=== PATIENT | male | born 1990 | race Caucasian/White ===

== ENCOUNTER 2018-03-12 14:17 | Inpatient (IN) | payer BC ==
[2018-03-12 14:38] VITALS: BMI 32.0
--- NOTE | 2018-03-12 16:03 | HP ---
COWS - Scale Resting Pulse: 0= [place] 80 or Below Sweatin=Flushed/Facial Moisture Restless Observation: 3= Extraneous Movement Pupil Size: 2= Moderately Dilated Bone or Joint Aches: 2= Severe Diffuse Aches Runny Nose/ Eye Tearin= Runny Nose/Eyes GI Upset > 30mins: 3= Vomiting/Diarrhea Tremor Observation: 2= Slight Tremor Visible Yawning Observation: 2= >3x During Session Anxiety or Irritability: 2=Irritable/Anxious Goose Flesh Skin: 0=Smooth Skin COWS Score: 20 Admission ROS S - HPI Chief Complaint: i need help to stop using heroin and marijuana Allergies/Adverse Reactions: Allergies Allergy/AdvReac Type Severity Reaction Status Date / Time No Known Allergies Allergy Verified 03/12/18 15:46 History of Present Illness: this 27 years old male with heroin and marijuana dependence,seeking detox, withdrawal symptom,never been in detox before nicotine dependence longest period of sobriety 2 and half years - Ebola screening Have you traveled outside of the country in the last 21 days: No Have you had contact with anyone from an Ebola affected area: No Have you been sick,other than usual withdrawal symptoms: No Do you have a fever: No - Review of Systems Constitutional: Chills, Diaphoresis, Loss of Appetite, Malaise, Night Sweats, Changes in sleep, Weakness EENT: reports: Tearing, Nose Congestion Respiratory: reports: No Symptoms reported Cardiac: reports: No Symptoms Reported GI: reports: Diarrhea, Nausea, Vomiting, Abdominal cramping : reports: No Symptoms Reported Musculoskeletal: reports: Back Pain, Joint Pain, Muscle Pain, Joint Stiffness Integumentary: reports: Dryness Neuro: reports: Headache, Tremors Endocrine: reports: No Symptoms Reported Hematology: reports: No Symptoms Reported Psychiatric: reports: No Sypmtoms Reported, Judgement Intact, Mood/Affect Appropiate, Orientated x3 Patient History - Patient Medical History Hx Anemia: No Hx Asthma: No Hx Chronic Obstructive Pulmonary Disease (COPD): No Hx Cancer: No Hx Cardiac Disorders: No Hx Congestive Heart Failure: No Hx Hypertension: No Hx Hypercholesterolemia: No Hx Pacemaker: No HX Cerebrovascular Accident: No Hx Seizures: No Hx Dementia: No Hx Diabetes: No Hx Gastrointestinal Disorders: No Hx Liver Disease: No Hx Genitourinary Disorders: No Hx Sexually Transmitted Disorders: No Hx Renal Disease (ESRD): No Hx Thyroid Disease: No Hx Human Immunodeficiency Virus (HIV): No (last 2014 negative) Hx Hepatitis C: No Hx Depression: No Hx Suicide Attempt: No Hx Bipolar Disorder: No Hx Schizophrenia: No Other Medical History: no suicidal,no homicidal - Patient Surgical History Past Surgical History: Yes Hx Orthopedic Surgery: Yes (R knee meniscus repair. 2007) Anesthesia Reaction: No - PPD History Previous Implant?: No Implanted On Prior R Admission?: No PPD to be Administered?: Yes - Smoking Cessation Smoking history: Current every day smoker Have you smoked in the past 12 months: Yes Aproximately how many cigarettes per day: 10 Hx Chewing Tobacco Use: No Initiated information on smoking cessation: Yes 'Breaking Loose' booklet given: 03/12/18 - Substance & Tx. History Hx Alcohol Use: No Hx Substance Use: Yes Substance Use Type: Heroin Hx Substance Use Treatment: No - Substances Abused Heroin Route: Inhalation Frequency: Daily Amount used: 1/2 gram Age of first use: 25 Date of Last Use: 03/11/18 Marijuana/Hashish Route: Smoking Frequency: Daily Amount used: 1-3 joints Age of first use: 20 Date of Last Use: 03/10/18 Family Disease History - Family Disease History Family History: Denies Admission Physical Exam S - Vital Signs Vital Signs: Vital Signs - 24 hr 03/12/18 14:34 Temperature 98.3 F Pulse Rate 59 L Respiratory 18 Rate Blood Pressure 132/72 - Physical General Appearance: Yes: Moderate Distress, Tremorous, Irritable, Sweating, Anxious HEENTM: Yes: Normal ENT Inspection, JUANITA, Pharynx Normal Respiratory: Yes: Lungs Clear, Normal Breath Sounds, No Respiratory Distress Neck: Yes: Within Normal Limits, Supple, Trachea in good position Breast: Yes: Within Normal Limits Cardiology: Yes: Within Normal Limits, Regular Rhythm, Regular Rate, S1, S2 Abdominal: Yes: Within Normal Limits, Normal Bowel Sounds, Non Tender, Flat, Soft Genitourinary: Yes: Within Normal Limits Back: Yes: Muscle Spasm Musculoskeletal: Yes: full range of Motion, Back pain, Muscle Pain Extremities: Yes: Within Normal Limits, Normal Range of Motion, Tremors 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 - Detox or Rehab [facility] Level of Care: Medically Managed Detox Regimen/Protocol: Methadone [facility] Breath Alcohol Content Breath Alcohol Content: 0 Urine Drug Screen - Results Drug Screen Negative: No Urine Drug Screen Results: THC-Marijuana, OPI-Opiates
[2018-03-12] MEDS ORDERED: guaiFENesin/D-METHORPHAN HB 10 ML UNIT-DOSE CUPS PO PRN (16:11)
[2018-03-12] MEDS ORDERED: MENTHOL/PHENOL 1 EACH UD MM PRN (16:11)
[2018-03-12] MEDS ORDERED: hydrOXYzine PAMOATE 50 MG CAPSULE (FP) PO PRN (16:11)
[2018-03-12] MEDS ORDERED: NICOTINE POLACRILEX 2 MG GUM BC PRN (16:11)
[2018-03-12] MEDS ORDERED: IBUPROFEN 400 MG TABLET (FP) PO PRN (16:11)
[2018-03-12] MEDS ORDERED: MAGNESIUM CITRATE 300 ML BOTTLE PO PRN (16:11)
[2018-03-12] MEDS ORDERED: LOPERAMIDE HCL 2 MG CAPSULE PO PRN (16:11)
[2018-03-12] MEDS ORDERED: P-EPHED 60MG/TRIPROLIDI 2.5MG TABLET PO PRN (16:11)
[2018-03-12] MEDS ORDERED: METHADONE HCL 10 MG TABLET (FOR DETOX USE ONLY) PO ONE ×2 (17:00→23:00)
[2018-03-12] MEDS: diazePAM 5 MG TABLET PO PRN ×2 (18:06→22:14)
[2018-03-12] MEDS: NICOTINE 21 MG/24 HOURS TOPICAL PATCH TD SCH (18:06)
[2018-03-12] MEDS: CYCLOBENZAPRINE HCL 10 MG TABLET (FP) PO PRN ×2 (18:39→22:55)
[2018-03-12] MEDS: THIAMINE HCL 100 MG TABLET (FP) PO SCH (22:13)
[2018-03-12] MEDS: cloNIDine HCL 0.1 MG TABLET PO SCH (22:13)
[2018-03-13] MEDS: NICOTINE 21 MG/24 HOURS TOPICAL PATCH TD SCH (09:50)
[2018-03-13] MEDS: cloNIDine HCL 0.1 MG TABLET PO SCH ×2 (09:51→22:04)
[2018-03-13] MEDS: PRENATAL VITAMINS W/ FOLIC ACID TABLET (FP) PO SCH (09:51)
[2018-03-13] MEDS: diazePAM 5 MG TABLET PO PRN ×3 (09:52→22:04)
[2018-03-13] MEDS: ACETAMINOPHEN 325 MG TABLET (FP) PO PRN ×2 (09:54→17:50)
[2018-03-13] MEDS ORDERED: METHADONE HCL 10 MG TABLET (FOR DETOX USE ONLY) PO ONE (10:00)
[2018-03-13 10:26] LABS: HEMATOCRIT 44.3 % (35.4-49); HEMOGLOBIN 14.4 GM/dL (11.7-16.9); MCH 26.1 pg (25.7-33.7); MCHC 32.6 g/dl (32.0-35.9); MEAN CELL VOLUME 80.1 fl (80-96); MEAN PLT VOLUME 9.8 fl (7.5-11.1); PLATELET COUNT 202 K/MM3 (134-434); RBC 5.53 M/mm3 (4.00-5.60); RDW 14.2 % (11.9-15.9); WHITE BLOOD COUNT 6.9 K/mm3 (4.0-10.0)
[2018-03-13 11:08] LABS: ANION GAP 9 (8-16); BLOOD UREA NITROGEN 10 mg/dL (7-18); CHLORIDE 106 mmol/L (98-107); CO2 27 mmol/L (21-32); GLUCOSE,RANDOM 100 mg/dL (74-106); POTASSIUM 3.7 mmol/L (3.5-5.1); SGOT/AST 15 U/L (15-37); SGPT/ALT 17 U/L (12-78); SODIUM 142 mmol/L (136-145)
[2018-03-13 11:10] LABS: ALK PHOS 54 U/L (45-117); BILIRUBIN,TOTAL 0.9 mg/dL (0.2-1.0); CALCIUM 9.3 mg/dL (8.5-10.1); CREATININE 0.8 mg/dL (0.7-1.3); TOT PROT 7.1 g/dl (6.4-8.2)
--- NOTE | 2018-03-13 11:57 | PN ---
BHS COWS - Scale Resting Pulse: 0= [place] 80 or Below Sweatin= Chills/Flushing Restless Observation: 3= Extraneous Movement Pupil Size: 0= Normal to Room Light Bone or Joint Aches: 1= Mild Discomfort Runny Nose/ Eye Tearin= None GI Upset > 30mins: 2= Nausea/Diarrhea Tremor Observation of Outstretched Hands: 2= Slight Tremor Visible Yawning Observation: 1= 1-2x During Session Anxiety or Irritability: 2=Irritable/Anxious Goose Flesh Skin: 0=Smooth Skin COWS Score: 12 BHS Progress Note (SOAP) Subjective: ANXIETY,SWEATS,CHILLS,TREMORS,NAUSEA,MUSCLE SPASMS,LOW APPETITE. OOB AMBULATING WITH STEADY GAIT. Objective: 03/13/18 11:56 Vital Signs 03/13/18 03/13/18 06:45 09:15 Temperature 97.3 F L 98.5 F Pulse Rate 49 L 80 Respiratory 18 20 Rate Blood Pressure 114/69 110/60 Laboratory Tests 03/13/18 03/13/18 07:20 07:20 WBC 6.9 RBC 5.53 Hgb 14.4 Hct 44.3 MCV 80.1 MCH 26.1 MCHC 32.6 RDW 14.2 Plt Count 202 MPV 9.8 Sodium 142 Potassium 3.7 Chloride 106 Carbon Dioxide 27 Anion Gap 9 BUN 10 Creatinine 0.8 Creat Clearance w eGFR > 60 Random Glucose 100 Calcium 9.3 Total Bilirubin 0.9 AST 15 ALT 17 Alkaline Phosphatase 54 Total Protein 7.1 Albumin 4.0 OTHER LABS PENDING Assessment: 03/13/18 11:56 WITHDRAWAL SX Plan: CONTINUE DETOX INCREASE PO FLUIDS.
--- NOTE | 2018-03-13 14:33 | EKG ---
Test Reason : Blood Pressure : / mmHG Vent. Rate : 070 BPM Atrial Rate : 070 BPM P-R Int : 116 ms QRS Dur : 108 ms QT Int : 418 ms P-R-T Axes : -42 007 049 degrees QTc Int : 451 ms UNUSUAL P AXIS, POSSIBLE ECTOPIC ATRIAL RHYTHM ABNORMAL ECG NO PREVIOUS ECGS AVAILABLE Confirmed by KUMAR DAILEY, NERY ([id number]) on 03/13/2018 2:32:42 PM Referred By: Confirmed By:NERY HEATH MD
--- NOTE | 2018-03-13 16:25 | PN ---
S Progress Note Note: Results of Admission ECG noted. Patient denies any known history of cardiovascular disease or previous ECG abnormality. Patient denies Chest Pain, SOB, and dizziness. ECG to be repeated tomorrow AM. Sherie Yates NP
[2018-03-13] MEDS: CYCLOBENZAPRINE HCL 10 MG TABLET (FP) PO PRN ×2 (17:49→22:53)
[2018-03-13 20:44] LABS: URINE APPEARANCE TURBID; URINE BILIRUBIN NEGATIVE (<2.0 mg/dL); URINE COLOR YELLOW; URINE GLUCOSE (UA) NEGATIVE (NEGATIVE); URINE KETONE 1+ (NEGATIVE); URINE LEUK ESTERASE NEGATIVE (NEGATIVE); URINE NITRITE NEGATIVE (NEGATIVE); URINE PROTEIN NEGATIVE (NEGATIVE); URINE UROBILINOGEN NEGATIVE mg/dL (0.2-1.0)
[2018-03-13] MEDS: THIAMINE HCL 100 MG TABLET (FP) PO SCH (22:04)
[2018-03-13] MEDS: MAGNESIUM HYDROX 2400MG/30ML ORAL SUSPENSION 30 ML CUP PO PRN (22:53)
[2018-03-13] MEDS: MELATONIN 5 MG TABLETS PO PRN (22:53)
[2018-03-14] MEDS: diazePAM 5 MG TABLET PO PRN ×5 (02:08→22:06)
[2018-03-14] MEDS: CYCLOBENZAPRINE HCL 10 MG TABLET (FP) PO PRN ×2 (05:12→22:06)
[2018-03-14] MEDS: MAG HYDROX/AL HYDROX/SIMETH 30 ML UNIT-DOSE CUP PO PRN ×2 (08:19→19:37)
[2018-03-14] MEDS: ACETAMINOPHEN 325 MG TABLET (FP) PO PRN ×2 (09:03→20:47)
[2018-03-14] MEDS ORDERED: METHADONE HCL 5 MG TABLET (FOR DETOX USE ONLY) PO ONE (10:00)
[2018-03-14] MEDS: DOCUSATE SODIUM 100 MG CAPSULE (FP) PO SCH ×2 (10:27→22:06)
[2018-03-14] MEDS: PRENATAL VITAMINS W/ FOLIC ACID TABLET (FP) PO SCH (10:27)
[2018-03-14] MEDS: cloNIDine HCL 0.1 MG TABLET PO SCH ×2 (10:27→22:06)
[2018-03-14] MEDS: NICOTINE 21 MG/24 HOURS TOPICAL PATCH TD SCH (12:05)
--- NOTE | 2018-03-14 15:48 | PN ---
BHS COWS - Scale Resting Pulse: 0= [place] 80 or Below Sweatin= Chills/Flushing Restless Observation: 0= Sits Still Pupil Size: 0= Normal to Room Light Bone or Joint Aches: 2= Severe Diffuse Aches Runny Nose/ Eye Tearin= None GI Upset > 30mins: 1= Stomach Cramp Tremor Observation of Outstretched Hands: 0= None Yawning Observation: 2= >3x During Session Anxiety or Irritability: 2=Irritable/Anxious Goose Flesh Skin: 3=Piloerection COWS Score: 11 S Progress Note (SOAP) Subjective: Body Aches, H/A, Stomach Cramping, H/A. Earlier in AM, Patient reported pain (sharp, 6/10 on pain scale) on left side of lower chest and upper abdomen since last night. However patient reported that pain subsided substantially after he had a bowel movement (patient had also received dose of PRN Mylanta earlier. Patient also reports history of similar occurrence. Objective: PATIENT A & O X 3. NO ACUTE DISTRESS. PATIENT DENIES ANY KNOWN HISTORY OF CARDIOVASCULAR DISEASE, ECG ABNORMALITY, STOMACH DISEASE, OR LIVER DISEASE. 03/14/18 15:44 Vital Signs Temperature 97.2 F L 03/14/18 13:28 Pulse Rate 52 L 03/14/18 13:28 Respiratory Rate 18 03/14/18 13:28 Blood Pressure 97/64 03/14/18 13:28 O2 Sat by Pulse Oximetry (%) Laboratory Tests 03/12/18 03/13/18 03/13/18 16:00 07:20 07:20 WBC 6.9 RBC 5.53 Hgb 14.4 Hct 44.3 MCV 80.1 MCH 26.1 MCHC 32.6 RDW 14.2 Plt Count 202 MPV 9.8 Sodium 142 Potassium 3.7 Chloride 106 Carbon Dioxide 27 Anion Gap 9 BUN 10 Creatinine 0.8 Creat Clearance w eGFR > 60 Random Glucose 100 Calcium 9.3 Total Bilirubin 0.9 AST 15 ALT 17 Alkaline Phosphatase 54 Total Protein 7.1 Albumin 4.0 Urine Color Yellow Urine Appearance Turbid Urine pH 5.0 Ur Specific [place] 1.025 Urine Protein Negative Urine Glucose (UA) Negative Urine Ketones 1+ H Urine Blood Negative Urine Nitrite Negative Urine Bilirubin Negative Urine Urobilinogen Negative Ur Leukocyte Esterase Negative RPR Titer 03/13/18 07:20 WBC RBC Hgb Hct MCV MCH MCHC RDW Plt Count MPV Sodium Potassium Chloride Carbon Dioxide Anion Gap BUN Creatinine Creat Clearance w eGFR Random Glucose Calcium Total Bilirubin AST ALT Alkaline Phosphatase Total Protein Albumin Urine Color Urine Appearance Urine pH Ur Specific [place] Urine Protein Urine Glucose (UA) Urine Ketones Urine Blood Urine Nitrite Urine Bilirubin Urine Urobilinogen Ur Leukocyte Esterase RPR Titer Nonreactive LABS NOTED. Assessment: 03/14/18 15:48 WITHDRAWAL SYMPTOMS. Plan: CONTINUE DETOX. COLACE PO BID FOR CONSTIPATION. ENCOURAGE AMBULATION.
--- NOTE | 2018-03-14 16:33 | EKG ---
Test Reason : Blood Pressure : / mmHG Vent. Rate : 045 BPM Atrial Rate : 045 BPM P-R Int : 000 ms QRS Dur : 106 ms QT Int : 450 ms P-R-T Axes : -53 030 050 degrees QTc Int : 389 ms UNUSUAL P AXIS, POSSIBLE ECTOPIC ATRIAL BRADYCARDIA WITH PREMATURE ATRIAL COMPLEXES ABNORMAL ECG WHEN COMPARED WITH ECG OF 13-MAR-2018 11:10, NO SIGNIFICANT CHANGE WAS FOUND Confirmed by JASE CROSS MD ([id number]) on 03/14/2018 4:32:52 PM Referred By: Confirmed By:JASE CROSS MD
--- NOTE | 2018-03-14 16:35 | EKG ---
Test Reason : Blood Pressure : / mmHG Vent. Rate : 061 BPM Atrial Rate : 061 BPM P-R Int : 118 ms QRS Dur : 102 ms QT Int : 404 ms P-R-T Axes : -36 017 048 degrees QTc Int : 406 ms UNUSUAL P AXIS, POSSIBLE ECTOPIC ATRIAL RHYTHM WITH PREMATURE ATRIAL COMPLEXES ABNORMAL ECG WHEN COMPARED WITH ECG OF 12-MAR-2018 18:00, PREMATURE ATRIAL COMPLEXES ARE NOW PRESENT Confirmed by AMERICA DAILEY, JASE ([id number]) on 03/14/2018 4:34:48 PM Referred By: Confirmed By:JASE CROSS MD
[2018-03-14] MEDS: THIAMINE HCL 100 MG TABLET (FP) PO SCH (22:06)
[2018-03-14] MEDS: MELATONIN 5 MG TABLETS PO PRN (22:07)
[2018-03-15] MEDS: ACETAMINOPHEN 325 MG TABLET (FP) PO PRN ×2 (05:44→09:44)
[2018-03-15] MEDS: diazePAM 5 MG TABLET PO PRN (05:44)
[2018-03-15] MEDS: PRENATAL VITAMINS W/ FOLIC ACID TABLET (FP) PO SCH (09:43)
[2018-03-15] MEDS: cloNIDine HCL 0.1 MG TABLET PO SCH ×2 (09:43→22:03)
[2018-03-15] MEDS: DOCUSATE SODIUM 100 MG CAPSULE (FP) PO SCH (09:44)
[2018-03-15] MEDS: NICOTINE 21 MG/24 HOURS TOPICAL PATCH TD SCH (09:52)
[2018-03-15] MEDS ORDERED: METHADONE HCL 5 MG TABLET (FOR DETOX USE ONLY) PO ONE (10:00)
--- NOTE | 2018-03-15 17:01 | PN ---
BHS Progress Note (SOAP) Subjective: Sweating, Chills, Diarrhea, Tremors. Patient denies chest pain and abdominal pain. Objective: PATIENT A & O X 3, OBSERVED AMBULATING ON UNIT. NO ACUTE DISTRESS. 03/15/18 16:59 Vital Signs Temperature 96.1 F L 03/15/18 14:01 Pulse Rate 64 03/15/18 14:01 Respiratory Rate 18 03/15/18 14:01 Blood Pressure 120/69 03/15/18 14:01 O2 Sat by Pulse Oximetry (%) Laboratory Tests 03/12/18 03/13/18 03/13/18 16:00 07:20 07:20 WBC 6.9 RBC 5.53 Hgb 14.4 Hct 44.3 MCV 80.1 MCH 26.1 MCHC 32.6 RDW 14.2 Plt Count 202 MPV 9.8 Sodium 142 Potassium 3.7 Chloride 106 Carbon Dioxide 27 Anion Gap 9 BUN 10 Creatinine 0.8 Creat Clearance w eGFR > 60 Random Glucose 100 Calcium 9.3 Total Bilirubin 0.9 AST 15 ALT 17 Alkaline Phosphatase 54 Total Protein 7.1 Albumin 4.0 Urine Color Yellow Urine Appearance Turbid Urine pH 5.0 Ur Specific [place] 1.025 Urine Protein Negative Urine Glucose (UA) Negative Urine Ketones 1+ H Urine Blood Negative Urine Nitrite Negative Urine Bilirubin Negative Urine Urobilinogen Negative Ur Leukocyte Esterase Negative RPR Titer 03/13/18 07:20 WBC RBC Hgb Hct MCV MCH MCHC RDW Plt Count MPV Sodium Potassium Chloride Carbon Dioxide Anion Gap BUN Creatinine Creat Clearance w eGFR Random Glucose Calcium Total Bilirubin AST ALT Alkaline Phosphatase Total Protein Albumin Urine Color Urine Appearance Urine pH Ur Specific [place] Urine Protein Urine Glucose (UA) Urine Ketones Urine Blood Urine Nitrite Urine Bilirubin Urine Urobilinogen Ur Leukocyte Esterase RPR Titer Nonreactive LABS NOTED. Assessment: 03/15/18 17:00 WITHDRAWAL SYMPTOMS. Plan: CONTINUE DETOX.
[2018-03-15] MEDS: CYCLOBENZAPRINE HCL 10 MG TABLET (FP) PO PRN (22:03)
[2018-03-15] MEDS: THIAMINE HCL 100 MG TABLET (FP) PO SCH (22:04)
[2018-03-15] MEDS: MELATONIN 5 MG TABLETS PO PRN (22:05)
[2018-03-15] MEDS: MAGNESIUM HYDROX 2400MG/30ML ORAL SUSPENSION 30 ML CUP PO PRN (22:05)
[2018-03-16] MEDS: cloNIDine HCL 0.1 MG TABLET PO SCH ×2 (09:52→22:04)
[2018-03-16] MEDS: PRENATAL VITAMINS W/ FOLIC ACID TABLET (FP) PO SCH (09:52)
[2018-03-16] MEDS ORDERED: METHADONE HCL 10 MG TABLET (FOR DETOX USE ONLY) PO ONE (10:00)
[2018-03-16] MEDS: NICOTINE 21 MG/24 HOURS TOPICAL PATCH TD SCH (11:27)
--- NOTE | 2018-03-16 16:25 | PN ---
BHS Progress Note (SOAP) Subjective: Anxious, Chills, Sweating. Objective: PATIENT A & O X 3, OBSERVED AMBULATING ON UNIT. NO ACUTE DISTRESS. 03/16/18 16:24 Vital Signs Temperature 97.6 F 03/16/18 14:09 Pulse Rate 75 03/16/18 14:09 Respiratory Rate 18 03/16/18 14:09 Blood Pressure 130/70 03/16/18 14:09 O2 Sat by Pulse Oximetry (%) Laboratory Tests 03/12/18 03/13/18 03/13/18 16:00 07:20 07:20 WBC 6.9 RBC 5.53 Hgb 14.4 Hct 44.3 MCV 80.1 MCH 26.1 MCHC 32.6 RDW 14.2 Plt Count 202 MPV 9.8 Sodium 142 Potassium 3.7 Chloride 106 Carbon Dioxide 27 Anion Gap 9 BUN 10 Creatinine 0.8 Creat Clearance w eGFR > 60 Random Glucose 100 Calcium 9.3 Total Bilirubin 0.9 AST 15 ALT 17 Alkaline Phosphatase 54 Total Protein 7.1 Albumin 4.0 Urine Color Yellow Urine Appearance Turbid Urine pH 5.0 Ur Specific [place] 1.025 Urine Protein Negative Urine Glucose (UA) Negative Urine Ketones 1+ H Urine Blood Negative Urine Nitrite Negative Urine Bilirubin Negative Urine Urobilinogen Negative Ur Leukocyte Esterase Negative RPR Titer 03/13/18 07:20 WBC RBC Hgb Hct MCV MCH MCHC RDW Plt Count MPV Sodium Potassium Chloride Carbon Dioxide Anion Gap BUN Creatinine Creat Clearance w eGFR Random Glucose Calcium Total Bilirubin AST ALT Alkaline Phosphatase Total Protein Albumin Urine Color Urine Appearance Urine pH Ur Specific [place] Urine Protein Urine Glucose (UA) Urine Ketones Urine Blood Urine Nitrite Urine Bilirubin Urine Urobilinogen Ur Leukocyte Esterase RPR Titer Nonreactive LABS NOTED. Assessment: 03/16/18 16:24 WITHDRAWAL SYMPTOMS. Plan: CONTINUE DETOX. PATIENT SCHEDULED FOR D/C TOMORROW.
[2018-03-16] MEDS: ACETAMINOPHEN 325 MG TABLET (FP) PO PRN ×2 (17:42→22:04)
[2018-03-16] MEDS: THIAMINE HCL 100 MG TABLET (FP) PO SCH (22:05)
[2018-03-16] MEDS: MELATONIN 5 MG TABLETS PO PRN (22:05)
[2018-03-17] MEDS: ACETAMINOPHEN 325 MG TABLET (FP) PO PRN (05:45)
[2018-03-17] MEDS ORDERED: METHADONE HCL 5 MG TABLET (FOR DETOX USE ONLY) PO ONE (06:00)
[2018-03-17 06:12] VITALS: BP 102/61; PULSE 56; TEMP 96.7
--- NOTE | 2018-03-17 11:55 | DS ---
[facility] Detox Discharge Summary Admission Date: 03/12/18 Discharge Date: 03/17/18 - History Present History: Cannabis Dependence, Opioid Dependence Pertinent Past History: Denies - Physical Exam Results Vital Signs: Vital Signs Temperature 96.7 F L 03/17/18 06:11 Pulse Rate 56 L 03/17/18 06:11 Respiratory Rate 18 03/17/18 06:11 Blood Pressure 102/61 03/17/18 06:11 O2 Sat by Pulse Oximetry (%) Pertinent Admission Physical Exam Findings: Withdrawal symptoms Laboratory Tests 03/12/18 03/13/18 03/13/18 16:00 07:20 07:20 WBC 6.9 RBC 5.53 Hgb 14.4 Hct 44.3 MCV 80.1 MCH 26.1 MCHC 32.6 RDW 14.2 Plt Count 202 MPV 9.8 Sodium 142 Potassium 3.7 Chloride 106 Carbon Dioxide 27 Anion Gap 9 BUN 10 Creatinine 0.8 Creat Clearance w eGFR > 60 Random Glucose 100 Calcium 9.3 Total Bilirubin 0.9 AST 15 ALT 17 Alkaline Phosphatase 54 Total Protein 7.1 Albumin 4.0 Urine Color Yellow Urine Appearance Turbid Urine pH 5.0 Ur Specific [place] 1.025 Urine Protein Negative Urine Glucose (UA) Negative Urine Ketones 1+ H Urine Blood Negative Urine Nitrite Negative Urine Bilirubin Negative Urine Urobilinogen Negative Ur Leukocyte Esterase Negative RPR Titer 03/13/18 07:20 WBC RBC Hgb Hct MCV MCH MCHC RDW Plt Count MPV Sodium Potassium Chloride Carbon Dioxide Anion Gap BUN Creatinine Creat Clearance w eGFR Random Glucose Calcium Total Bilirubin AST ALT Alkaline Phosphatase Total Protein Albumin Urine Color Urine Appearance Urine pH Ur Specific [place] Urine Protein Urine Glucose (UA) Urine Ketones Urine Blood Urine Nitrite Urine Bilirubin Urine Urobilinogen Ur Leukocyte Esterase RPR Titer Nonreactive Labs reviewed - Treatment Hospital Course: Detox Protocol Followed, Detoxed Safely, Responded well, Discharged Condition Good - Medication Discharge Medications: Ambulatory Orders NK [No Known Home Medication] 03/12/18 - Diagnosis (1) Cannabis dependence Status: Acute (2) Nicotine dependence Status: Acute Qualifiers: Nicotine product type: cigarettes Substance use status: in withdrawal Qualified Code(s): F17.213 - Nicotine dependence, cigarettes, with withdrawal (3) Opioid dependence with withdrawal Status: Acute - AMA Did Patient Leave Against Medical Advice: No (F/U with your PCP within 1-2 weeks )
== END 2018-03-17 07:44 | disposition home or self-care (01) | DRG 897 ==
LOC: YASAS 14:17 → Y3N 16:11
PROVIDERS: ADMIT Internal Medicine; ATTEND Internal Medicine
PROC: HZ2ZZZZ Detoxification Services for Substance Abuse Treatment (ICD-10-PCS; principal; 2018-03-12)
DX: F11.23 Opioid dependence with withdrawal (principal); F12.20 Cannabis dependence, uncomplicated; F17.213 Nicotine dependence, cigarettes, with withdrawal
CPT/HCPCS: 36415; 80053; 81003; 85027; 86593; 93005; 93010; J0735